=== PATIENT | female | born 1980 | race Caucasian/White ===

== ENCOUNTER → 2021-06-17 | Outpatient (CLI) | payer BC ==
[~2021-06-17] MED LIST: ACET325; ALBU.083IS; ALBU90OI; MULVITMINE; PRED20 PO; RXAMOX500 PO
[2021-06-17 17:32] LABS: Source, Urine Clean Catch
[2021-06-17 18:45] LABS: Appearance, Urine Hazy (Clear); Bilirubin, Urine Neg (Neg); Blood, Urine 3+ (Neg); Color, Urine Yellow (P-Yellow); Glucose Qualitative, Urine Neg (Neg); Ketones, Urine Neg (Neg); Leukocyte Esterase, Urine Neg (Neg); Nitrite, Urine Neg (Neg); Protein, Urine Neg (Neg); Urobilinogen, Urine NORM (Normal)
[2021-06-17 19:30] LABS: Bacteria Many /hpf; Red Blood Cells, Urine Rare /hpf (0-2); Squamous Epithelial Cells Many /hpf (Few); White Blood Cells, Urine 0-2 /hpf (0-5)
[2021-06-18 11:07] LABS: Candida species (DNA Probe) Negative (NEGATIVE); G. vaginalis (DNA Probe) Negative (NEGATIVE); T. vaginalis (DNA Probe) Negative (NEGATIVE)
== END | disposition home or self-care (01) ==
LOC: LAB SHORT 17:20
PROVIDERS: Obstetrics & Gynecology
DX: Z11.3 Encounter for screening for infections with a predominantly sexual mode of transmission (principal); R35.0 Frequency of micturition; R10.2 Pelvic and perineal pain
CPT/HCPCS: 81001; 87480; 87510; 87660

== ENCOUNTER → 2022-10-23 | Outpatient (CLI) | payer OTHER | END | disposition home or self-care (01) | LOC: LAB SHORT 10:25 | DX: M45.6 Ankylosing spondylitis lumbar region (principal); M54.41 Lumbago with sciatica, right side; M79.10 Myalgia, unspecified site; R53.83 Other fatigue | CPT/HCPCS: 85651 ==

== ENCOUNTER → 2024-04-26 | Outpatient (CLI) | payer OTHER ==
[~2024-04-26] MED LIST changes: +BREO ELLIPTA 11 EAC1 INH; +CYCL10; +DULERA 100 MCG/13 GM; +FLUV50; +MELO7.5 PO; +METPHE10; +MONT10T PO; +Prevacid15 M2; +TRAZ50 PO
[2024-04-26 16:22] LABS: Adenovirus F 40/41 Not Detected (NOT DETECT); Astrovirus Not Detected (NOT DETECT); Campylobacter Sp Not Detected (NOT DETECT); Cryptosporidium Not Detected (NOT DETECT); Cyclospora Cayetanensis Not Detected (NOT DETECT); E. Coli O157 Not Detected (NOT DETECT); Entamoeba Histolytica Not Detected (NOT DETECT); Enteroaggregative E. coli-EAEC Not Detected (NOT DETECT); Enteropathogenic E. coli-EPEC Not Detected (NOT DETECT); Enterotoxigenic E. coli-ETEC Not Detected (NOT DETECT); Giardia Lamblia Not Detected (NOT DETECT); Norovirus GI/GII Not Detected (NOT DETECT); Plesiomonas Shigelloides Not Detected (NOT DETECT); Rotavirus A Not Detected (NOT DETECT); Salmonella Sp Not Detected (NOT DETECT); Sapovirus Not Detected (NOT DETECT); Shiga Toxin-prod E. coli-STEC Not Detected (NOT DETECT); Shigella/Enteroin E. coli-EIEC Not Detected (NOT DETECT); Vibrio Cholerae Not Detected (NOT DETECT); Vibrio Sp Not Detected (NOT DETECT); Yersinia Enterocolitica Not Detected (NOT DETECT)
== END | disposition home or self-care (01) ==
LOC: LAB SHORT 06:00 → LAB 06:00
PROVIDERS: Family Medicine
DX: A08.4 Viral intestinal infection, unspecified (principal)
CPT/HCPCS: 87507